=== PATIENT | female | born 1955 | race Hispanic/Latino ===

== ENCOUNTER 2021-08-25 14:05 | Emergency (ER) | payer BC, MEDICARE ==
[~2021-08-25] VITALS: Ht 165.1 cm; Wt 73.5 kg
[2021-08-25] MEDS ORDERED: ALBUTEROL/IPRATROPIUM 3 ML NEB NEB ONE (17:30)
[2021-08-25] MEDS ORDERED: ALBUTEROL/IPRATROPIUM 3 ML NEB ONE (18:03)
[2021-08-25 18:56] VITALS: BP 141/74
== END 2021-08-25 18:57 | disposition home or self-care (01) ==
LOC: FSED 14:28
DX: R06.02 Shortness of breath (principal); I10 Essential (primary) hypertension; E78.5 Hyperlipidemia, unspecified; R73.03 Prediabetes; E66.9 Obesity, unspecified; R53.83 Other fatigue; J45.909 Unspecified asthma, uncomplicated; Z68.27 Body mass index [BMI] 27.0-27.9, adult
CPT/HCPCS: 71046; 80053; 82553; 83880; 84484; 85025; 85379; 99284